=== PATIENT | male | born 1950 | race American Indian/Alaskan Native ===

== ENCOUNTER 2022-05-03 07:49 | Inpatient (IN) | payer MEDICARE, OTHER ==
[~2022-05-03] VITALS: Ht 167.6 cm; Wt 83.9 kg
[2022-05-03] VITALS (27 sets, daily range): BP systolic 117–164; BP diastolic 74–100
[~2022-05-03 07:49] MED LIST: LOSA100T57 PO; ceFAZolin inj. 2,000 MG in dextrose 5%-water 100 ML IV ONE; famotidine 20mg tablet PO ONE; ringers solution, lacted 1,000 ML IV SCH
[2022-05-03] MEDS ORDERED: famotidine 20mg tablet PO ONE (08:20)
[2022-05-03] MEDS ORDERED: bacitracin 15gm ointment TP ONE (08:46)
[2022-05-03 09:05] LABS: BASOPHILS # (AUTO) 0.1 X10'3 (0-0.2); BASOPHILS % (AUTO) 0.8 % (0-1); EOSINOPHILS # (AUTO) 0.3 X10'3 (0-0.9); EOSINOPHILS % (AUTO) 4.1 % (0-6); LYMPHOCYTES # (AUTO) 1.6 X10'3 (1.1-4.8); LYMPHOCYTES % (AUTO) 25.9 % (21-51); MEAN CORPUSCULAR HEMOGLOBIN 29.2 PG (27.0-31.0); MEAN CORPUSCULAR HGB CONC 33.2 g/dL (33.0-36.5); MEAN PLATELET VOLUME 8.1 FL (7.4-10.4); MONOCYTES # (AUTO) 0.6 X10'3 (0-0.9); MONOCYTES % (AUTO) 9.6 % (2-12); NEUTROPHILS # (AUTO) 3.8 X10'3 (1.8-7.7); NEUTROPHILS % (AUTO) 59.6 % (42-75); PRE OP HEMATOCRIT 43.7 % (42.0-52.0); PRE OP HEMOGLOBIN 14.5 g/dL (14.0-17.9); PRE OP PLATELET COUNT 208 X10'3 (140-440); RED BLOOD COUNT 4.96 X10'6 (4.70-6.10); RED CELL DISTRIBUTION WIDTH 13.6 % (11.5-14.5)
[2022-05-03 09:20] LABS: ALBUMIN 3.9 G/DL (3.4-5.0); ALBUMIN/GLOBULIN RATIO 1.1 (1.1-1.5); ALKALINE PHOSPHATASE 70 IU/L (46-116); BLOOD UREA NITROGEN 12 MG/DL (7-18); BUN/CREATININE RATIO 15.4 (5.4-32.0); CALCIUM 9.1 MG/DL (8.5-10.1); CHLORIDE 107 MMOL/L (99-107); CREATININE 0.78 MG/DL (0.60-1.10); PRE OP ALT 17 U/L (30-65); PRE OP ANION GAP 6 (8-16); PRE OP AST 20 U/L (10-37); PRE OP BILIRUB, TOTAL 0.5 MG/DL (0.0-1.0); PRE OP GLUCOSE 104 MG/DL (70-104); PRE OP SODIUM 141 MMOL/L (135-145); TOTAL CARBON DIOXIDE 27.7 MMOL/L (24-32); TOTAL PROTEIN 7.4 G/DL (6.4-8.2); eGFR > 90 ML/MIN
[2022-05-03] MEDS ORDERED: dexamethasone sod phosphate 10mg/ml inj ONE (09:49)
[2022-05-03] MEDS ORDERED: sevoflurane 250ml liquid IH ONE (09:49)
[2022-05-03] MEDS ORDERED: fentaNYL/PF 50MCG/1 ML 2ML syringe ONE (09:52)
[2022-05-03] MEDS ORDERED: MIDAZolam 1 MG/ML 5ML VIAL ONE (09:53)
[2022-05-03 10:03] LABS: CLARITY,URINE CLEAR (Clear); COLOR,URINE YELLOW (Yellow); GLUCOSE, URINE NEGATIVE (Neg); KETONES,URINE NEGATIVE (Neg); LEUKOCYTE ESTERASE ,URINE NEGATIVE (Neg); NITRITES, URINE NEGATIVE (Neg); OCCULT BLOOD,URINE NEGATIVE (Neg); PH,URINE 7.5 (4.8-8.0); PROTEIN,URINE NEGATIVE (Neg); UROBILINOGEN,URINE 0.2 E.U/dL (0.2-1.0)
[2022-05-03 10:09] LABS: UA COLLECTION TYPE VOIDED
[2022-05-03] MEDS ORDERED: ondansetron/PF 4mg/2ml inj IV PRN (11:50)
[2022-05-03] MEDS ORDERED: meperidine/PF 25mg/ml syringe IV PRN ×2 (11:50)
[2022-05-03] MEDS ORDERED: morphine 2 MG/ML inj. syringe IV PRN (11:50)
[2022-05-03] MEDS ORDERED: ROPIVAcaine 0.2% (10 MG/5 ML) BOLUS INJECTION POPLITEAL PRN (11:50)
[2022-05-03] MEDS ORDERED: ringers solution, lacted 1,000 ML IV SCH (11:50)
[2022-05-03] MEDS ORDERED: proCHLORperazine 10 MG/2 ml inj IV PRN (11:50)
[2022-05-03] MEDS ORDERED: ROPIVAcaine 0.2%/PF PUMP/bolus 545 ML POPLITEAL SCH (11:50)
[2022-05-03] MEDS ORDERED: propofol inj 20 ML IV ONE (11:59)
[2022-05-03] MEDS ORDERED: ROPIVAcaine 0.5% (5mg/ml) 30ml vial ONE (12:00)
[2022-05-03] MEDS ORDERED: ondansetron/PF 4mg/2ml inj ONE (14:39)
--- NOTE | 2022-05-03 14:51 | NUR ---
Received from OR via [facility], accompanied by Anesthesiologist DR WOOD and report given by Anesthesiologist AND CORE JAVA ENGINEER. PT VERY DROWSY, NO S/S OF DISTRESS/DISCOMFORT. PT W/SPLINT W/VEGA WRAP COVERING, INCISION/DRSG CDI. GREEN PIN IN TIP OF 2ND TOE CDI, TOES PWD, COSMETIC SALES 1-2 SECONDS. ABC CATHETER INTACT. Addendum: 05/03/22 at 1518 by Karine Willingham RN Amended: Links added.
[2022-05-03] MEDS: meperidine/PF 25mg/ml syringe IV PRN ×2 (15:10→15:22)
[2022-05-03] MEDS: morphine 4 MG/ML inj SYRINge IV PRN ×2 (15:33→17:02)
--- NOTE | 2022-05-03 15:46 | NUR ---
UPDATED PTS , REPORT TO RECEIVING SARAH GEE. Addendum: 05/03/22 at 1546 by Karine Willingham RN Amended: Links added.
[2022-05-03] MEDS ORDERED: HYDROcodone/acetaminophen 10/325mg tab PO PRN ×2 (16:45)
[2022-05-03] MEDS ORDERED: HYDROmorphone inj. 0.5 MG/0.5 ML DISP.SYRIN IV PRN (16:45)
[2022-05-03] MEDS ORDERED: acetaminophen 325mg tablet PO PRN (16:45)
[2022-05-03] MEDS ORDERED: magnesium hydroxide 30ml (MOM) UD suspension PO PRN (16:45)
[2022-05-03] MEDS ORDERED: diphenhydrAMINE 25mg capsule PO PRN ×2 (16:45)
[2022-05-03] MEDS ORDERED: HYDROmorphone 1 mg/ml syringe IV PRN (16:45)
[2022-05-03] MEDS ORDERED: naloxone 0.4 mg/ml inj IV PRN (16:45)
[2022-05-03] MEDS ORDERED: bisacodyl 10mg suppository rectal RC PRN (16:45)
--- NOTE | 2022-05-03 17:11 | NUR ---
REPORT GIVEN AND ALL QUESTIONS ANSWERED. PATIENT TRANSFERRED TO [facility] ICU. LABELED BELONGINGS PRESENT AND DELIVERED TO ROOM. RN PRESENT ALL CRITERIA FOR TRANSFER BACK TO THE FLOOR HAS BEEN ACHIEVED. VSS. PAIN AT A TOLERABLE LEVEL. BED LOW, CALL LIGHT PRESENT AND 2 RAILS DOWN. SARAH MUNOZ PRESENT AND PATIENT HAS ARRIVED. Addendum: 05/03/22 at 1731 by Simone Rubio RN, RN Amended: Links added.
--- NOTE | 2022-05-03 18:39 | NUR ---
Problems reprioritized. Patient report given, questions answered & plan of care reviewed with nita madera.
[2022-05-03] MEDS: PCA WASTE DOCUMENTATION 1 MG ML MC SCH (18:54)
[2022-05-03] MEDS: ondansetron/PF 4mg/2ml inj IV PRN (18:58)
[2022-05-03] MEDS ORDERED: sennosides 8.6mg tablet PO SCH (21:00)
[2022-05-04] MEDS: ceFAZolin/D5W- 1GM premix 50 ML IV SCH ×2 (00:48→08:01)
[2022-05-04] MEDS: ondansetron/PF 4mg/2ml inj IV PRN ×2 (00:58→07:58)
[2022-05-04 02:00] VITALS: BP 141/79
--- NOTE | 2022-05-04 06:53 | NUR ---
Problems reprioritized. Patient report given, questions answered & plan of care reviewed with Maritza SMITH. Addendum: 05/04/22 at 0701 by Julee Morocho RN Amended: Links added.
--- NOTE | 2022-05-04 06:53 | NUR ---
Patient in room [facility]. I have received report from [facility] and had the opportunity to ask questions and assume patient care.
--- NOTE | 2022-05-04 07:13 | NUR ---
Problems reprioritized. Patient report given to Isai, questions answered & plan of care reviewed with .
[2022-05-04 07:44] VITALS: BP 137/74
[2022-05-04] MEDS: PCA WASTE DOCUMENTATION 1 MG ML MC SCH (08:00)
[2022-05-04] MEDS ORDERED: aspirin 325mg tablet PO SCH (08:30)
[2022-05-04 11:17] VITALS: BP 146/95
--- NOTE | 2022-05-04 16:00 | NUR ---
PATIENT DISCHARGED HOME AT THIS TIME. PATIENT IV TAKEN OUT AND DISCHARGE WAS DONE WITH CHARGE NURSE AND FAMILY IN ROOM. ALL EDUCATION PROVIDED BY HEADWAITRESS AT THIS TIME. NEW MEDICATIONS WERE ADDED TO NEW PHARMACY DUE TO THE WEATHER NOT ALLOWING THE PATIENT TO RETURN HOME WHERE MEDICATIONS WERE ALREADY PICKED UP. PATIENT LEFT WITH ALL BELONGINGS AT DISCHARGE.
== END 2022-05-04 15:20 | disposition home or self-care (01) | DRG 494 ==
LOC: PAS IN 07:49 → INTOOBSV 07:49 → OBSVTOIN 17:00 → SUR 3N 17:25
PROVIDERS: ADMIT Podiatrist Foot & Ankle Surgery; ATTEND Podiatrist Foot & Ankle Surgery
PROC: 0QBG0ZZ Excision of Right Tibia, Open Approach (ICD-10-PCS; 2022-05-03)
PROC: 0SGH07Z Fusion of Right Tarsal Joint with Autologous Tissue Substitute, Open Approach (ICD-10-PCS; 2022-05-03)
PROC: 0SGH07Z Fusion of Right Tarsal Joint with Autologous Tissue Substitute, Open Approach (ICD-10-PCS; 2022-05-03)
PROC: 0SGH07Z Fusion of Right Tarsal Joint with Autologous Tissue Substitute, Open Approach (ICD-10-PCS; 2022-05-03)
PROC: 0QSN04Z Reposition Right Metatarsal with Internal Fixation Device, Open Approach (ICD-10-PCS; 2022-05-03)
PROC: 0QBN0ZZ Excision of Right Metatarsal, Open Approach (ICD-10-PCS; 2022-05-03)
PROC: 0QBQ0ZZ Excision of Right Toe Phalanx, Open Approach (ICD-10-PCS; 2022-05-03)
PROC: 0LSN0ZZ Reposition Right Lower Leg Tendon, Open Approach (ICD-10-PCS; principal; 2022-05-03 09:49)
DX: M20.41 Other hammer toe(s) (acquired), right foot (principal); M21.41 Flat foot [pes planus] (acquired), right foot; M19.071 Primary osteoarthritis, right ankle and foot; M21.611 Bunion of right foot; M77.41 Metatarsalgia, right foot
CPT/HCPCS: 36415; 73620; 76000; 80053; 81003; 82948; 85025; 87081; 93005; 97116; 97161; 97530; A4215; A4618; A6223; A6446; A6449; A7000; C1713; C1769; G0378; J0690; J1100; J2175; J2250; J2270; J2405; J2704; J2795; J3010; J7060; J7120